=== PATIENT | male | born 1980 | race Asian ===

== ENCOUNTER 2022-09-06 16:52 | Emergency (ER) | payer OTHER ==
[2022-09-06 18:07] VITALS: BP 127/86; PULSE 78; RESP 19; TEMP 97.8; BMI 28.3
== END 2022-09-06 18:10 | disposition left against medical advice (07) ==
LOC: JER 16:52
DX: K62.5 Hemorrhage of anus and rectum (principal); R10.9 Unspecified abdominal pain
CPT/HCPCS: 99281-25

== ENCOUNTER 2022-09-06 22:44 | Emergency (ER) | payer OTHER ==
[2022-09-06 22:52] VITALS: BP 147/95; PULSE 76; RESP 18; TEMP 98; BMI 28.3
[2022-09-06 23:19] LABS: HEMATOCRIT 47.8 % (35.4-49); HEMOGLOBIN 16.5 G/dL (11.7-16.9); MCH 32.1 pg (25.7-33.7); MCHC 34.5 g/dl (32.0-35.9); MEAN CELL VOLUME 93.1 fl (80-96); MEAN PLT VOLUME 8.3 fl (7.5-11.1); PLATELET COUNT 322.6 10^3/uL (134-434); RBC 5.13 10^6/uL (4.00-5.60); RDW 13.9 % (11.9-15.9)
[2022-09-06 23:34] LABS: ALBUMIN 4.1 g/dl (3.4-5.0); BILIRUBIN,TOTAL 0.5 mg/dl (0.2-1); CALCIUM 9.3 mg/dl (8.5-10); CREATININE 1.1 mg/dl (0.55-1.3); TOT PROT 7.4 g/dl (6.4-8.2)
[2022-09-07] MEDS ORDERED: MAGNESIUM CITRATE 300 ML BOTTLE PO ONE (01:19)
== END 2022-09-07 01:29 | disposition home or self-care (01) ==
LOC: FER 22:44
DX: K64.4 Residual hemorrhoidal skin tags (principal); K59.00 Constipation, unspecified
CPT/HCPCS: 36415; 74019-TC-FY; 74177-TC; 80053; 85027; 99285-25; Q9967

== ENCOUNTER 2022-09-28 04:55 | Day surgery (SDC) | payer OTHER ==
[2022-09-27 10:29] VITALS: BMI 29.7
[2022-09-28 10:57] VITALS: TEMP 97.1
[2022-09-28 11:41] VITALS: BP 125/82; PULSE 64; RESP 17
== END 2022-09-28 11:42 | disposition home or self-care (01) ==
LOC: JASU-ENDO 04:55
PROVIDERS: ATTEND Student in an Organized Health Care Education/Training Program
PROC: 0DBL8ZX Excision of Transverse Colon, Via Natural or Artificial Opening Endoscopic, Diagnostic (ICD-10-PCS; principal; 2022-09-28 09:00)
DX: K92.1 Melena (principal); D12.2 Benign neoplasm of ascending colon; K64.8 Other hemorrhoids
CPT/HCPCS: 88305-TC